=== PATIENT | female | born 1980 | race Caucasian/White ===

== ENCOUNTER 2022-03-29 08:23 | Emergency (ER) | payer OTHER ==
[~2022-03-29] VITALS: Ht 154.9 cm; Wt 72.7 kg
[2022-03-29 10:10] LABS: COVID AG,FIA SOURCE NASOPHARYNGEAL
[2022-03-29 11:23] LABS: INFLUENZA TYPE A NEGATIVE FOR TYPE A (NEGATIVE); INFLUENZA TYPE B NEGATIVE FOR TYPE B (NEGATIVE)
[2022-03-29 12:54] VITALS: BP 124/70
== END 2022-03-29 13:30 | disposition home or self-care (01) ==
LOC: EMS 08:23
DX: J06.9 Acute upper respiratory infection, unspecified (principal); Z20.822 Contact with and (suspected) exposure to COVID-19
CPT/HCPCS: 87804; 99283